=== PATIENT | female | born 1965 | race Caucasian/White ===

== ENCOUNTER → 2021-01-18 09:01 | Outpatient (CLI) | payer OTHER, SELFPAY ==
[2021-01-18 10:54] LABS: COVID19 -Nasal RAPID Negative (Negative)
== END ==
PROVIDERS: Family Provider Registered Nurse; PCP Registered Nurse; Visit Provider Physician Assistant
DX: Z20.822 Contact with and (suspected) exposure to COVID-19 (principal)
CPT/HCPCS: 87635

== ENCOUNTER 2021-01-20 06:22 | Day surgery (SDC) | payer OTHER, SELFPAY ==
[2021-01-15 09:24] VITALS: BMI 38.0
[2021-01-20] VITALS (15 sets, daily range): BP systolic 102–131; BP diastolic 34–89; PULSE 77–105; RESP 12–20; TEMP 36.3–36.8; O2SAT 94–99; BMI 38.0
--- NOTE | 2021-01-20 06:30 | DI.RAD.S_ITS ---
PROCEDURE: XR KNEE LT 1TO2V INDICATIONS: post op total knee TECHNIQUE: A total of 2 view(s) of the knee acquired. COMPARISON: None. FINDINGS: Bones: Patient is status post knee joint arthroplasty. Hardware components are in expected positions. Visualized bony structures are intact. Soft tissues: Overlying postoperative changes are noted. IMPRESSION: Normal alignment after left total knee arthroplasty. Dictated by: Jovanny Pantoja M.D. on 01/20/2021 at 13:08 Approved by: Jovanny Pantoja M.D. on 01/20/2021 at 13:08
[2021-01-20] MEDS: CELECOXIB 200 MG CAPSULE PO (06:54)
[2021-01-20] MEDS: ACETAMINOPHEN 325 MG TABLET 975 MG PO (06:54)
[2021-01-20] MEDS: PREGABALIN 75 MG CAPSULE PO (06:54)
[2021-01-20] MEDS: LACTATED RINGERS 1,000 ML 42 ML IV ×2 (07:15→09:11)
--- NOTE | 2021-01-20 07:29 | PM.PREOP ---
Pre-operative Note COVID-19 COVID-19 status: Negative Result date/Date tested (Pos, Neg/Pending): 01/18/21 Interval Note History & Physical reviewed/Exam performed by Physician: Yes Changes to H&P: No
--- NOTE | 2021-01-20 07:30 | PM.OP.1 ---
Operative Date/Time/Diagnoses Date of procedure: 01/20/21 Time of procedure: 09:30 Pre-op diagnosis: Left knee osteoarthritis Post-op diagnosis: same Procedure & Clinicians Procedure: Left total knee replacement Same procedure as scheduled: Yes Indications: The patient has had progressively worsening left knee pain with radiographic changes consistent with arthritis. Non-operative management has failed and the patient has requested total knee replacement. The risks, benefits and alternatives to surgery were discussed with the patient prior to proceeding. Risks discussed included, but were not limited to, failure to relieve pain, stiffness, infection, nerve damage, deep venous thrombosis, pulmonary embolism, stroke, coma, heart attack, permanent paralysis and , as well as the potential need for eventual revision of the prosthetic. Surgeon: Godwin Juarez Coagulating Bath Operator: Boo Pearce Click Yes if Unassisted: No Anesthesia Type: General, Spinal and Local Operative Notes Findings: Severe tricompartmental osteoarthritis with relative sparing of the lateral compartment. The patellar tendon appeared to have been moved medially by a prior procedure. Closure Type: primary Specimen(s): none sent Prosthetic devices, grafts, tissues, transplants, or devices: Implants used in this procedure were manufactured by the [employer] and included the BCS II Journey total knee replacement with a size 6 left Oxinium femoral component, a size 5 left non porous tibial base plate, a 9 mm cross-linked polyethylene tibial insert and a 35 mm oval Antoinette II patellar component. Applied: implant(s) Estimated Blood Loss (mL): 25 Blood products transfused: none Tourniquet time (min): 58 Procedure in detail: The patient was seen in the pre-operative area, where the left knee was identified as the operative site and this was marked with my initials. The patient received pre-operative antibiotics, and was taken to the operating room and placed on the operative table in the supine position. After satisfactory anesthesia, a time stamp assembler out was performed. The left leg was encircled with a tourniquet about the proximal thigh, and the leg was prepared from the toes to the tourniquet with ChloroPrep in the usual fashion and draped through sterile drapes. The leg was elevated and exsanguinated with Eschmark bandage and the tourniquet inflated to 250 mmHg pressure. The knee was approached through an approximately 18 cm incision centered over the patella and carried into the knee through a medial parapatellar arthrotomy. The anterior osteophytes and soft tissues were removed. The rotational landmarks of Glynn's line and the transepicondylar axis were marked on the femur with electrocautery, and intramedullary guide holes for the femur and tibia were created. The distal femoral cut was made in 6 degrees of valgus using the intramedullary guide at the +1 mm cut setting due to a small flexion contracture preoperatively. The proximal tibial cut was then made using the intramedullary guide, taking 9 mm of bone off the less involved side. The extension gap was checked and the rotation of the femoral component confirmed with the gap balancing blocks. The anterior, posterior and chamfer cuts were then made. The posterior osteophytes and soft tissues were then removed. The posterior capsule was injected with part of a mixture of 60 ml 0.25% Marcaine mixed with 20 ml Exparel and 4 mg of morphine for post-operative pain control. The remainder of this mixture was injected into the capsule and subcutaneous tissues during cement curing. The tibia was prepared with the rotation set by an extra medullary guide. Trial tibial and femoral components were then placed and the intercondylar notch cut through the femoral trial. Range of motion was 0-135 degrees, with good stability throughout the range. The patella was then cut to accommodate the patellar prosthetic. There was no need for a lateral release. The trials were then removed, and the femoral hole plugged with a bone plug. The bone was prepared with pulsatile lavage, and dried with a sponge. Cement was applied and the final prosthetics placed. Excess cement was removed during and after cement curing. After confirming there was no extruded cement posteriorly, the final tibial insert was placed. The knee was copiously irrigated and the tourniquet deflated. Hemostasis was obtained. The capsule was closed with interrupted # 2 polyester sutures. The subcutaneous layer was closed with 3-0 Vicryl, and the skin with a running 3-0 V-Lock suture and Dermabond. An Aquacel Ag dressing was applied followed by an Keo wrap and the patient was taken to recovery having tolerated the procedure well. Complications: none Post-operative Condition: stable Disposition: PACU Plan for aftercare: The patient will be maintained on a standard total knee replacement protocol with weight bearing as tolerated. The patient will receive aspirin and sequential compression devices for DVT prophylaxis. The patient will be discharged home when safe for the home environment.
[2021-01-20] MEDS: CEFAZOLIN 2 GM/100 ML FROZ.PIGGY IV (07:45)
[2021-01-20] MEDS: TRANEXAMIC ACID 1,000 MG VIAL 1000 MG INJ ×2 (07:55→09:11)
--- NOTE | 2021-01-20 08:11 | SUR.OPER ---
Supine on padded OR bed. Pillow under head, arms secured on padded armboards <90 degree abduction. Safety belt across torso. Non-operative leg secured with tape over blanket over lower leg. Operative leg secured in DeMayo/Kvng positioner. Foam padded brace at thigh of operative leg.
[2021-01-20] MEDS: BUPIVACAINE LIPOSOME 266 MG/20 ML VIAL INJ (08:17)
[2021-01-20] MEDS: BUPIVACAINE 0.25% W/ EPI 30 ML VIAL 60 ML INJ (08:17)
[2021-01-20] MEDS: MORPHINE 4 MG/ML INJ INJ (08:18)
--- NOTE | 2021-01-20 10:26 | PC.NURSE ---
Day shift: Pt on AC unit from PACU at approx 1020. Pt is A&Ox4 and reports left knee pain 1/10. VS WNL. RA 97%. Tolerating calf SCD's. ELDA wrap and Aquacel CDI. PPP and good cap refill. Sensation present and Pt can wiggle bilat toes. Agrees to not get OOB w/o help from staff and will let RN know when pain 4/10 so pain management can begin. Denies any nausea. Will continue w/ post-op plan of care. Oriented to room and call light. Call light in reach.
[2021-01-20] MEDS: LACTATED RINGERS 1,000 ML 100 ML IV (10:29)
[2021-01-20] MEDS: IBUPROFEN 400 MG TABLET PO ×3 (12:08→20:38)
[2021-01-20] MEDS: ACETAMINOPHEN 325 MG TABLET 650 MG PO ×2 (14:02→20:38)
--- NOTE | 2021-01-20 15:34 | PT.IIE ---
Current Diagnoses Unilateral primary osteoarthritis, left knee (01/20/21) Surgery Performed Operation Date: 01/20/21 07:45 Actual Procedures p Total Knee Arthroplasty(Left) - Godwin Juarez MD Surgical History (Last Updated 01/15/21 @ 10:17 by Violette Alejo, RN) Hx of knee surgery Hx of tonsillectomy Status post loop electrosurgical excision procedure (LEEP) of cervix (04/30/17) Medical History (Last Updated 01/15/21 @ 10:20 by Violette Alejo RN) Hx of thyroid irradiation Hypothyroidism Osteoarthritis Thyroid nodule Physical Therapy Inpatient Evaluation/Re-Eval M1 PT/OT-IP Prior Functional Status Start: 01/20/21 11:06 Freq: NEEDED Status: Active Protocol: Document 01/20/21 15:34 AW (Rec: 01/20/21 16:37 AW [id number]) Medical Review Prior Functional Status Medical History Reviewed Yes Communication WNL. Pt is an effective verbal communicator Mobility and Gait Pt has been using a single crutch for the past few months due to increasing knee instability. She is typically independent with mobility. Activities of Daily Living and IADL's Independent. Social History Household Members spouse,children Living Arrangements House Number of Floors (Floors) Two Floors Number of Stairs To Enter/Railing? 1 MARVEL through the garage or the front with right rail ascending. Once inside, pt climbs 6 steps + landing + 7 steps all with left rail ascending to bedroom level. Pt plans to go upstairs when she discharges. Home Environment High Toilet,Tub/Shower Home Equipment Crutches,Shower Seat without Backrest,Long Handled Shoe Horn,Grab Bars In Shower Additional Social History Comment Pt lives with her spouse, Carter. Pt states there is a bathroom vanity on the left side of the toilet. She may be getting a FWW from [place] but is uncertain about timing. M2 PT-IP Current Condition Start: 01/20/21 11:06 Freq: NEEDED Status: Active Protocol: Document 01/20/21 15:34 AW (Rec: 01/20/21 16:37 AW [id number]) Physical Therapy Current Condition Current Condition Evaluation Date 01/20/21 Treatment Diagnosis L TKA; difficulty in walking Onset Date 01/20/21 Weight Bearing Status Weight Bearing Status Weight Bear as Tolerated M3 PT-IP Subjective Start: 01/20/21 11:06 Freq: NEEDED Status: Active Protocol: Document 01/20/21 15:34 AW (Rec: 01/20/21 16:37 AW [id number]) Subjective Physical Therapy Visit Type Type Initial Evaluation Visit Start Time 15:10 Visit Stop Time 15:34 Total Visit Minutes 24 Notes Pt's spouse was present throughout evaluation Number of ROD CUP FILLER Visits 0 Physical Therapy Visit Comments Patient Comments Pt is willing to work with PT Patient Goals Return home tomorrow. Therapy Pain Assessment Pain When Pain Assessed During Mobility Pain Present Pain Present Pain Reported Location Left Knee Intensity 1 Scale Used Numeric (0 - 10) Pain Management Techniques Apply Cold,Timing of Activity with Medications M4 PT-IP Mobility and Gait Start: 01/20/21 11:06 Freq: NEEDED Status: Active Protocol: Document 01/20/21 15:34 AW (Rec: 01/20/21 16:37 AW [id number]) PT-Bed Mobility Assessment Supine to Sit Supine to Sit Standby Assistance Scooting Scooting to Edge of Bed Standby Assistance PT-Transfer Assessment Sit to and From Stand Sit to and from Stand Contact Guard Assistance,1 Person Assistance,Use of Upper Extremities Equipment Transfer Assistive Device Gait Belt,Front Wheeled Walker Orthotic/Prosthetic Devices or Brace: No Transfers Transfer Destination Chair Transfer Technique Stand Step Pivot Transfer Ability Level of Assist Contact Guard Assistance,1 Person Assistance,Use of Upper Extremities Comments Mobility Comments Pt was sitting up in bed as PT arrived. BP 120/70 HR 70. She completed supine to sit SBA and scooted to EOB. With cues and CGA, pt stood from the bed and was able to shift weight laterally using FWW for support. She ambulated 25 feet around the room with FWW SBA and transferred to the chair CGA and cues for LLE placement . Pt was left with call light and all needs in reach. Gait Assessment Gait Gait Assistance Required: Standby Assistance,Contact Guard Assist Distance (Feet) 25 Able to Maintain Weight Bearing Status Yes During Gait Assistive Devices Assistive Device Gait Belt,Front Wheeled Walker Orthotic/Prosthetic Devices or Brace: No Gait Deviations General Gait Pattern Antalgic,Decreased Stride Length,Decreased Feet Clearance,Step-to Gait Factors Limiting Gait Function Factors Limiting Gait Function Decreased Sensation,Decreased Strength,Pain Comments Gait Comments Pt ambulated with step-to pattern but was able to step through in response to cues. Stair Climbing Assessment Comments Stair Climbing Comments Not assessed. Pt agrees to practice stairs in the morning . PT-Balance Assessment Sitting Balance and Reactions Static Sitting Balance Ability Good Dynamic Sitting Balance Ability Good Standing Balance and Reactions Static Standing Balance Ability Good Dynamic Standing Balance Ability Good Device Used FWW M5 PT-IP Objective Assessments Start: 01/20/21 11:06 Freq: NEEDED Status: Active Protocol: Document 01/20/21 15:34 AW (Rec: 01/20/21 16:37 AW [id number]) Orientation Orientation/Cognition Level of Alertness Alert Orientation Name,Day of Week,Place, Situation Language Function Ability No Deficits Noted Safety Awareness Understands Safety Issues Memory Description No Deficits Noted Gross Range of Motion Lower Extremity ROM Assessment Left Impaired Strength Lower Extremity Strength Assessment Left Impaired Hip 3+/5 Comments Strength Comments RLE grossly 4+/5 Sensation Assessment Sensation Gross Sensation Right LE Impaired Light Touch Impaired Proprioception (Position) Impaired M6 PT-IP Treatment Start: 01/20/21 11:06 Freq: NEEDED Status: Active Protocol: Document 01/20/21 15:34 AW (Rec: 01/20/21 16:37 AW [id number]) Physical Therapy Treatment Exercises Exercises Ankle Pumps,Quad Sets,Heel Slides,Passive Knee Extension Hang,Seated Knee Flexion/ Extension Education Education Provided Precautions,Weight Bearing Status,Post-Op Packet,Safety Other Treatments Other Treatment Performed Provided education on role of PT, plan of care, weightbearing status, and safe use of FWW. M7 PT-IP Assessment and Plan Start: 01/20/21 11:06 Freq: NEEDED Status: Active Protocol: Document 01/20/21 15:34 AW (Rec: 01/20/21 16:37 AW [id number]) PT Summary Assessment and Plan Potential Rehabilitation Potential Good Status of Condition at Evaluation Evolving Summary Impairments Pain,ROM,Strength,Balance, Sensation,Bed Mobility, Transfers,Gait Assessment Summary Roxana is a 55 yo woman seen for PT evaluation on POD0 following L TKA. She is independent in all regards at baseline but had been using a single axillary crutch for mobility over the past few months due to a sense of instability in the left knee. Pt required SBA to CGA during evaluation and will need to clear stairs prior to discharge. She may also need a FWW as it is unclear whether she will have one at home. PT anticipates she will be safe to discharge home with assist once medically cleared. Goals Bed Mobility Goal Independent Transfer Goal Independent,Front Wheeled Walker Gait Goal Standby Assistance,Front Wheel Walker Gait Distance 150 Other Goals - up/down 13 steps with L rail ascending SBA - up/down 2 steps with R rail ascending SBA Frequency of Treatment Frequency Of Treatment Twice a Day Treatment Plan Physical Therapy Treatment Plan Bed Mobility Training,Transfer Training,Gait Training, Therapeutic Exercise,Balance Retraining,Post Op Education, Discharge Planning,Hot or Cold Pack Other Recommendations and Next Treatment gait training with FWW; stairs Focus Recommendations To Nursing Amount of Assist Needed Standby Assistance,1 Person Assist Discharge Recommendations PT Discharge Recommendations Home with Assistance, Outpatient PT Equipment Needed for Home Before FWW Discharge Transportation Needs at Discharge Private Vehicle
[2021-01-20] MEDS: ASPIRIN EC 81 MG TABLET PO (20:38)
[2021-01-20] MEDS: DOCUSATE 100 MG CAPSULE PO (20:39)
[2021-01-21] MEDS: IBUPROFEN 400 MG TABLET PO ×3 (00:46→08:41)
[2021-01-21] MEDS: LACTATED RINGERS 1,000 ML 100 ML IV (03:32)
[2021-01-21 03:42] VITALS: BP 115/73; PULSE 80; RESP 18; TEMP 36.4; O2SAT 98
[2021-01-21 06:13] LABS: Hematocrit 33.8 % (36-46); Hemoglobin 11.3 g/dL (12.0-16.0)
[2021-01-21] MEDS: THYROID, PORK 30 MG TABLET 45 MG PO (06:45)
[2021-01-21 07:31] VITALS: BP 138/76; PULSE 79; RESP 15; TEMP 36.4; O2SAT 95
--- NOTE | 2021-01-21 07:36 | P.DS_ITS ---
History of Present Illness History of Present Illness Date Patient Seen: 01/21/21 Time Patient Seen: 07:36 Chief complaint: LEFT TKA *OPB* Narrative: The history and physical is contained in the chart previously completed note. Please refer to that note for this information. Discharge Providers Provider Discharge Date: 01/21/21 Primary care physician: Aron Hooker ND Consults: 01/20/21 10:18 Consult to Discharge Planning Routine Comment: Consult to Physical Therapy Evaluate & Treat Comment: Physician Instructions: postop TKA protocol Discharge provider: Godwin Juarez MD Summary Hospital Course Discharge Diagnosis: 1. Left knee osteoarthritis 2. Post hemorrhagic anemia Hospital Course: The patient was admitted to the hospital and taken directly to the operating room on January 20, 2021. She underwent a left total knee replacement without complications. On postoperative day 1 she was stable with a mild post hemorrhagic anemia that should not require further treatment. She had done well with therapy but was planning on stair training today prior to discha rge. Status at Discharge Cognitive/behavioral status at discharge: oriented Functional status at discharge: uses cane/walker Overall status at discharge: patient is progressing back to baseline Time Spent with Patient Time spent: Less than 30 minutes Exam Vital Signs (past 8 hours): - 01/21/21 03:42 01/21/21 07:31 Temperature 97.6 F 97.6 F Pulse Rate 80 79 Respiratory Rate 18 15 Blood Pressure 115/73 138/76 Pulse Oximetry 98 95 Oxygen Delivery Method Room Air Oxygen Flow Rate 0 Narrative Exam Narrative: Left knee wound is dressed with no drainage on the bandage. C louisa is soft. Light touch and motion are intact in the left lower extremity. Objective Labs Result Diagrams: 01/21/21 05:24 Labs: Laboratory Results - last 24 hr 01/21/21 05:24 Hgb 11.3 L Hct 33.8 L PFSH Medical History (Updated 01/15/21 @ 10:20 by Violette Alejo RN) Hx of thyroid irradiation Hypothyroidism Osteoarthritis Thyroid nodule Surgical History (Updated 01/15/21 @ 10:17 by Violette Alejo RN) Hx of knee surgery Hx of tonsillectomy Status post loop electrosurgical excision procedure (LEEP) of cervix (04/30/17) Social History household members: spouse and children Smoking Status: Never smoker alcohol intake: current Discharge Assessment & Plan Assessment and Plan Assessment: Stable postoperative day 1 status post left total knee replacement. She has a mild post hemorrhagic anemia that should not require further treatment. Plan of Treatment: Discharge today with follow-up in my office in 10-14 days. Discharge prescriptions have been called in to [facility] in [place] for oxycodone and Vistaril. In addition she has been instructed in the use of Tylenol and ibuprofen for additional pain control and the use of 81 mg aspirin twice a day for DVT prophylaxis. Discharge Plan Discharge Plan Patient Disposition: Home Discharge orders & Medications Discharge Orders: Discharge (Order); Ordered 01/21/21 Ordered By: Godwin Juarez Prescriptions: New acetaminophen 325 mg Tablet 650 mg PO TID 30 Days Qty: 180 RF: 0 aspirin 81 mg Tablet,Delayed Release (Dr/Ec) 81 mg PO BID 42 Days Qty: 84 RF: 0 hydroxyzine pamoate 25 mg Capsule 25 mg PO Q6HR PRN (Reason: Nausea) Qty: 30 RF: 0 oxycodone 5 mg Tablet 5 mg PO Q4H PRN (Reason: Pain, Moderate (4-6)) Qty: 40 RF: 0 Continued thyroid (pork) [[place] Thyroid] 60 MG tablet 45 mg PO QDAY Qty: 0 RF: 0 Follow up/Referrals: Aron Hooker ARNP [Primary Care Provider] - Godwin Juarez MD [Physician] - 2 Weeks Diet/Activity/Treatments Diet: Diet as Tolerated and Regular Activity: You may bear weight as tolerated on your left leg. Cold/Heat Therapy: Apply ice for 15 minutes every hour as needed to the left knee for pain control. Skin/Wound/Dressing Care Report to your healthcare provider any signs of infection, such as:: chills, fever, night sweats, increased pain, unusual drainage and unusual redness Dressing: You may remove the Keo wrap 3 days after surgery and shower normally. Leave the deeper dressing in place until your follow-up. If the central strip of the deeper dressing becomes saturated with either water or blood, please call the office to have it evaluated. Visit Report/Discharge Packet Instructions: DI for Knee Replacement Stand Alone Forms: Surgery Discharge Discharge Data Primary Care Provider: Aron Hooker Attending Provider: Godwin Juarez
[2021-01-21] MEDS: ACETAMINOPHEN 325 MG TABLET 650 MG PO (08:39)
[2021-01-21] MEDS: ASPIRIN EC 81 MG TABLET PO (08:42)
[2021-01-21] MEDS: DOCUSATE 100 MG CAPSULE PO (08:42)
--- NOTE | 2021-01-21 10:11 | PT.IPTN ---
Current Diagnoses Unilateral primary osteoarthritis, left knee (01/20/21) Surgery Performed Operation Date: 01/20/21 07:45 Actual Procedures p Total Knee Arthroplasty(Left) - Godwin Juarez MD Physical Therapy Treatment Note M2 PT-IP Current Condition Start: 01/20/21 11:06 Freq: NEEDED Status: Active Protocol: Document 01/20/21 15:34 AW (Rec: 01/20/21 16:37 AW [id number]) Physical Therapy Current Condition Current Condition Evaluation Date 01/20/21 Treatment Diagnosis L TKA; difficulty in walking Onset Date 01/20/21 Weight Bearing Status Weight Bearing Status Weight Bear as Tolerated M3 PT-IP Subjective Start: 01/20/21 11:06 Freq: NEEDED Status: Active Protocol: Document 01/21/21 10:00 DLM (Rec: 01/21/21 10:11 DLM [id number]) Subjective Physical Therapy Visit Type Type Treatment Note Visit Start Time 09:15 Visit Stop Time 10:00 Total Visit Minutes 45 Number of NEUROPSYCHOLOGY DIRECTOR Visits 0 Physical Therapy Visit Comments Patient Comments She feels she is ready to go home today, a FWW is being delivered to her house later today Patient Goals discharge home with Spouse Therapy Pain Assessment Pain When Pain Assessed After Treatment Pain Present Pain Present Pain Reported Location Left Knee Intensity 1 Scale Used Numeric (0 - 10) Description Aching Pain Behaviors Guarding Pain Management Techniques Apply Cold,Elevation,Timing of Activity with Medications M4 PT-IP Mobility and Gait Start: 01/20/21 11:06 Freq: NEEDED Status: Active Protocol: Document 01/21/21 10:00 DLM (Rec: 01/21/21 10:11 DLM [id number]) PT-Bed Mobility Assessment Supine to Sit Supine to Sit Independent Sit to Supine Sit to Supine Independent Scooting Scooting to Edge of Bed Independent Scooting Up and Down in Bed Independent PT-Transfer Assessment Sit to and From Stand Sit to and from Stand Independent,Use of Upper Extremities Equipment Transfer Assistive Device Gait Belt,Front Wheeled Walker ,Axillary Crutches Transfers Transfer Destination Bed,Chair Transfer Technique Stand Step Pivot Transfer Ability Level of Assist Independent,Use of Upper Extremities Comments Mobility Comments training performed with cutches and with fWW Gait Assessment Gait Gait Assistance Required: Independent Distance (Feet) 150 Assistive Devices Assistive Device Gait Belt,Front Wheeled Walker ,Axillary Crutches Gait Deviations General Gait Pattern Antalgic Factors Limiting Gait Function Factors Limiting Gait Function Decreased Strength,Limited Range of Motion,Pain Comments Gait Comments training performed with FWW and with crutches, she demonstrates a safe pattern with both, educated to increase knee flexion during swing phase of gait as tolerated Stair Climbing Assessment Evaluation Level of Assist On Stairs Standby Assistance Devices Stair Climbing Assistive Devices Axillary Crutches,Left Railing Technique/Endurance Stair Climbing Direction Ascend and Descend Stair Climbing Technique Step to Step Number of Steps Climbed 3 Stair Climbing Set # Repetitions (reps) 2 Comments Stair Climbing Comments pt holding both crutches on one side and rail on opposite side, education on safe pattern PT-Balance Assessment Sitting Balance and Reactions Static Sitting Balance Ability Normal Dynamic Sitting Balance Ability Normal Standing Balance and Reactions Static Standing Balance Ability Good Dynamic Standing Balance Ability Good Device Used FWW and crutches M5 PT-IP Objective Assessments Start: 01/20/21 11:06 Freq: NEEDED Status: Active Protocol: Document 01/20/21 15:34 AW (Rec: 01/20/21 16:37 AW [id number]) Orientation Orientation/Cognition Level of Alertness Alert Orientation Name,Day of Week,Place, Situation Language Function Ability No Deficits Noted Safety Awareness Understands Safety Issues Memory Description No Deficits Noted Gross Range of Motion Lower Extremity ROM Assessment Left Impaired Strength Lower Extremity Strength Assessment Left Impaired Hip 3+/5 Comments Strength Comments RLE grossly 4+/5 Sensation Assessment Sensation Gross Sensation Right LE Impaired Light Touch Impaired Proprioception (Position) Impaired M6 PT-IP Treatment Start: 01/20/21 11:06 Freq: NEEDED Status: Active Protocol: Document 01/21/21 10:00 DLM (Rec: 01/21/21 10:11 DLM [id number]) Physical Therapy Treatment Exercises Exercises Ankle Pumps,Quad Sets,Heel Slides,Straight Leg Raises, Short Arc Quads,Passive Knee Extension Hang,Seated Knee Flexion/Extension Knee ROM Measurement 5-75 Education Education Provided Weight Bearing Status,Post-Op Packet,Safety Other Treatments Other Treatment Performed answered her questions, Spouse is presen this visit M7 PT-IP Assessment and Plan Start: 01/20/21 11:06 Freq: NEEDED Status: Active Protocol: Document 01/21/21 10:00 DLM (Rec: 01/21/21 10:11 DLM [id number]) PT Summary Assessment and Plan Summary Impairments Pain,ROM,Strength,Balance, Sensation,Bed Mobility, Transfers,Gait Progress Towards Goals Safe For Discharge Assessment Summary Roxana demonstrates good progress post-op TKA. She is safe with crutches or fWW on level surfaces. She has difficulty with knee flexion more than extension today. Stair training completed with pt and her Spouse. She appears safe to discharge home with Spouse when medically cleared. Goals Bed Mobility Goal Independent Transfer Goal Independent,Front Wheeled Walker Gait Goal Standby Assistance,Front Wheel Walker Gait Distance 150 Other Goals - up/down 13 steps with L rail ascending SBA - up/down 2 steps with R rail ascending SBA Frequency of Treatment Frequency Of Treatment Twice a Day Treatment Plan Physical Therapy Treatment Plan Bed Mobility Training,Transfer Training,Gait Training, Therapeutic Exercise,Balance Retraining,Post Op Education, Discharge Planning,Hot or Cold Pack Recommendations To Nursing Amount of Assist Needed Standby Assistance Discharge Recommendations PT Discharge Recommendations Home with Assistance, Outpatient PT Equipment Needed for Home Before pt has FWW being delivered to Discharge her house, ok to go home with crutches until that time Transportation Needs at Discharge Private Vehicle
--- NOTE | 2021-01-21 10:20 | PC.NURSE ---
Addendum entered by Karissa Scales R.N. 01/21/21 10:43: Went over dc instructions and medications with patient, questions answered. Patient taken via wc to vehicle driven by spouse, patient had all belongings. Original Note: Patient alert oriented, denies pain worked with physical therapy and is ready to discharge.
--- NOTE | 2021-01-21 16:44 | CM.DANOTE ---
DCP ASSESSMENT: Attempted to see patient this am she was not available upon second attempt patient was already D/C from the hospital. Chart review: Patient is a 55 year-old female admitted for L TKA. PCP Per record is Aron Hooker. Primary Payer is [facility] and Self-Pay. Per chart review patient is independent as she works she was using a single crutch and per physical therapy evaluation will be using a FWW. PLAN: Patient D/C from hospital at this time. CASH Beltran MSW Student Discharge Planning/Care Management Pre-Anesthesia Assessment Start: 01/15/21 09:24 Freq: Status: Complete Protocol: Document 01/15/21 09:24 CAB (Rec: 01/15/21 10:37 CAB [id number]) Pre-Anesthesia Assessment Patient Information Reviewed Via Phone Assessment Assessment Completed With Patient H&P Completed Within 30 Days H&P not available time of PAC Comment Labs/EKG done per pt, not avail, COVID screen @ Primary Care Provider Aron Hooker Seen Specialist in Last 12 Months Yes Specialist Seen Orthopedist,Sleep specialist Primary Language Lithuanian Sleeper Cutter Required No Height 172.72 cm Weight 113.398 kg Body Mass Index (BMI) 38.0 Hearing Ability Normal Visual Assist None Dentition Type Teeth, Natural Present Barriers to Learning None Hx Anesthesia Reactions No Hx Family Anesthesia Reaction No Hx Malignant Hyperthermia No Hx Blood Transfusions No Hx Blood Transfusion Reaction No Anesthesia Review Requested No alcohol intake current alcohol intake frequency a few times a week Smoking Status Never smoker Substance Use Type does not use Pain Present Pain Reported Musculoskeletal Symptoms Abnormal Gait,Difficulty Walking,Joint Pain History of Falling (Recent or History of No ) Patient is completely paralyzed or No completely immobile Prosthesis or Orthotic Device Crutches Mental Status Oriented to own ability Is patient on oxygen? No Does patient have BARTHOLOMEW/SOB No Hx Sleep Apnea No Currently Taking a Beta Christopher No Can You Climb a Flight of Stairs Without Yes SOB Hx Chest Pain No Hx SOB No Hx Syncope or Dizziness No Anti-Coagulant Therapy No Has a Test And Balance Engineer No Cardiac Testing No Hx Pacemaker/ICD No Pacemaker Rep Required? No Diet Type At Home Regular dysphagia No Urinary Catheter Present No Hx Urinary Self Catheterization No Diabetes No Patient No Lactating No Hx Drug Resistant Organism No Presence of External or Internal Medical No Devices Have you had any close contact with Yes: had COVID 07/23 someone diagnosed with COVID-19? Marital Status Lives With spouse,children Prior Living Arrangements House Number of Floors (Floors) Two Floors Support System Spouse Does the Patient Have Assistance After Yes Surgery Patient Discharge Plan Description Return Home Comment Pt advised possible same day length of stay per surgeon Feels Safe in Current Environment Yes Been Physically Hurt or Threatened By a No Person in Current Environment Do you have thoughts of harming yourself None or others? Are you currently considering suicide? No Do you have a plan to hurt yourself or No Plan others? Do You Have Any Spiritual Beliefs That No May Affect Your HC Choices? Do You Have Any Cultural Practices That No May Affect Your HC Choices? Comment Judaism Who Can We Speak to About Patient's Care Family, friends Identifying Code for Release of Patient Declines to issue Information Health Care Proxy/Next of Kin Hugh () Health Care Proxy Emergency Contact Name Hugh () Emergency Contact Advance Directives? No Power of Senior Sales Manager No PAC Instructions Do not shave/clip surgical site,Durable medical equipment ,Medications to take/avoid, Nasal antibiotic,No ETOH/ petroleum product on skin DOS, NPO,Post-op transportation,Pre -surgical wash,Sturdy shoes/ comfortable clothes,Do not bring valuables and remove jewelry
== END 2021-01-21 10:44 | disposition home or self-care (01) ==
LOC: OR 06:26 → AC 06:28 → OR 06:38 → AC 09:41
PROVIDERS: Family Provider Registered Nurse; PCP Registered Nurse; Referring Provider Registered Nurse; Visit Provider Orthopaedic Surgery
PROC: 0SRD0JZ Replacement of Left Knee Joint with Synthetic Substitute, Open Approach (ICD-10-PCS; CPT 27447; principal; 2021-01-20 07:45)
DX: M17.12 Unilateral primary osteoarthritis, left knee (principal); E03.9 Hypothyroidism, unspecified; E66.9 Obesity, unspecified; Z68.38 Body mass index [BMI] 38.0-38.9, adult
CPT/HCPCS: 27447; 36415; 73560; 85014; 85018; 94762; 97110; 97116; 97161; C1776; C9290; J0690; J1100; J2250; J2270; J2274; J2405; J2704; J3010

== ENCOUNTER → 2024-08-07 16:42 | Outpatient (CLI) | payer OTHER, SELFPAY ==
[2021-01-20 10:25] VITALS: BMI 38.0
--- NOTE | 2024-08-07 16:57 | EKG_ITS ---
[address] [address] Test Date: 2024-08-07 Pat Name: Roxana Espinosa Department: [facility] Room: Gender: Female Gas Utility Worker: FABIÁN : 1965 Requested By: Order Number: [id number] Reading MD: Christos Gunter MD Measurements Intervals [place] Rate: 73 P: 44 [place]: 166 QRS: 27 QRSD: 112 T: 10 QT: 398 QTc: 438 Interpretive Statements Normal sinus rhythm Low voltage QRS Electronically Signed On 08-08-2024 7:35:10 PST by Christos Gunter MD
[2024-08-07 18:04] LABS: Add Manual Diff / Slide Review NO; Basophils Absolute Auto 100 /uL (0-100); Basophils Percent Auto 0.6 % (0-2); Eosinophils Absolute Auto 100 /uL (0-450); Eosinophils Percent Auto 1.6 % (2-4); Hematocrit 40.7 % (36-46); Hemoglobin 13.6 g/dL (12.0-16.0); Lymphocytes Absolute Auto 2300 /uL (1100-4500); Lymphocytes Percent Auto 27.5 % (25-40); Mean Corpuscular HGB Conc 33.4 % (30-36); Mean Corpuscular Hemoglobin 30.2 PG (26-34); Mean Corpuscular Volume 90.4 fL (80-100); Monocytes Absolute Auto 600 /uL (0-900); Monocytes Percent Auto 7.5 % (3-14); Neutrophils Absolute Auto 5200 /uL (1500-7000); Neutrophils Percent Auto 62.8 % (50-75); Platelet Count 285 X10^3/uL (150-400); Red Cell Distribution Width 13.9 % (11.6-14.8); White Blood Cell Count 8.3 X10^3/uL (4.5-11.0)
[2024-08-07 18:30] LABS: HEMOLYSIS < 15 (0-50)
[2024-08-07 18:36] LABS: Albumin 4.3 g/dL (3.5-5.0); BUN Creatinine Ratio 31.5 (6-22); Blood Urea Nitrogen 23 mg/dL (7-17); Calcium 9.8 mg/dL (8.4-10.2); Carbon Dioxide 27 mmol/L (22-32); Chloride 101 mmol/L (98-107); Estimated Glomerular Filt Rate > 60 mL/min (>60); Glucose 93 mg/dL (70-100); Potassium 4.2 mmol/L (3.4-5.1); Sodium 136 mmol/L (137-145)
[2024-08-07 18:40] LABS: Hemoglobin A1C% w Est Avg Glu 5.4 % (4.0-6.0)
[2024-08-07 18:53] LABS: Vitamin D 25 Hydroxy (D3) 29.7 ng/mL (30.0-100.0)
== END ==
PROVIDERS: Family Provider Registered Nurse; PCP Registered Nurse; Referring Provider Orthopaedic Surgery Adult Reconstructive Orthopaedic Surgery; Visit Provider Orthopaedic Surgery Adult Reconstructive Orthopaedic Surgery
DX: Z01.818 Encounter for other preprocedural examination (principal); R77.0 Abnormality of albumin; E55.9 Vitamin D deficiency, unspecified; Z01.812 Encounter for preprocedural laboratory examination
CPT/HCPCS: 36415; 80048; 82040; 82306; 83036; 84134; 85025; 93005